=== PATIENT | female | born 1985 | race Caucasian/White ===

== ENCOUNTER 2018-04-27 00:13 | Emergency (ER) | payer OTHER ==
[~2018-04-27] VITALS: Ht 157.5 cm; Wt 105.2 kg
[2018-04-27 00:55] LABS: URINE BILIRUBIN NEGATIVE (Negative); URINE BLOOD NEGATIVE (Negative); URINE CLARITY CLEAR; URINE COLOR YELLOW; URINE GLUCOSE-RANDOM NEGATIVE (Negative); URINE KETONES NEGATIVE (Negative); URINE LEUKOCYTES-REFLEX NEGATIVE (Negative); URINE NITRITE-REFLEX NEGATIVE (Negative); URINE PROTEIN NEGATIVE (Negative); URINE UROBILINOGEN 0.2 E.U./dl (0.2-1.0)
[2018-04-27] MEDS ORDERED: HYDROCODON-ACE1 EAC8 PO (02:52)
[2018-04-27 03:02] VITALS: BP 142/81
== END 2018-04-27 03:04 | disposition home or self-care (01) ==
LOC: M.ERS 00:13
PROVIDERS: Emergency Medicine
DX: R10.32 Left lower quadrant pain (principal); R10.31 Right lower quadrant pain; Z88.0 Allergy status to penicillin